=== PATIENT | female | born 1980 | race Caucasian/White ===

== ENCOUNTER → 2016-05-18 | Outpatient (CLI) | payer OTHER ==
[~2016-05-18] MED LIST: ACHYD1T PO; AMOX250S5 PO; CITA20TA12 PO; DCS100C PO; DEXAINTSOL PO; HYDR-34 PO; HYDR-3720 PO; HYDR120S7 PO; IBP600T1 PO; IBP800T PO; LOSA1TAB19 PO; PREN1TAB71 PO; TETRACAINESUCKERS MT
--- OUTSIDE RECORDS SUMMARY | 2016-05-18 08:36 | XMS REPORT | Continuity of Care Document ---
Author Author [facility] Organization [facility] Address Unknown Phone Unavailable Care Team Providers Care Department Coordinator Name Role Phone SHANNON RODRIGUEZ DO PCP Insurance Providers Payer Name Policy Number Subscriber Name Relationship [employer] [id number] Wayne Lantigua 18 Self / Same As Patient Advance Directives Directive Response Recorded Date/Time Advance Directives No 10/31/15 7:25am Health Care Power of Religious Assistant No 10/31/15 7:25am Resuscitation Status Full Code 10/31/15 7:25am Problems No problem information available. Medications Current Home Medications Medication Dose Units Route Directions Days/Qty Instructions Start Date Citalopram Hydrobromide 20 Mg 20 Mg Oral Daily 10/29/15 Losartan/Hydrochlorothiazide 1 Each 1 Each Oral Daily 10/29/15 Dexamethasone 1 Mg/1 Ml 2.5 Tsp Oral Daily 4 Days Mix 4MG/2.5CC water 10/31/15 Amoxicillin 250 Mg/5 Ml 2 Tsp Oral Twice A Day 7 Days 10/31/15 Hydrocodone Bit/[place] Me-Br 120 Ml 10-15 Ml Oral Every 4HRS as needed for Pain 1 10/31/15 Tetracaine Sucker 1 Ea Mouth/Throat As Directed as needed for Pain 3 Tetracain Suckers These suckers are custom made and require a prescription. Moisten the sucker first and then suck on it gently as far back in the mouth as possible for 2-3 days. You can repeadt it in about an hour. This will take the edge off but not completely numb the throat. 10/31/15 Past Home Medications Medication Directions Ordered Status Vit/Fe Fumarate/Fa 1 Each Tablet, 1 Each Oral Daily 05/14/12 Discontinued Ibuprofen 600 Mg Tab, 600 Mg Oral Every 6 Hours as needed 05/16/12 Discontinued Docusate Sodium 100 Mg Capsule, 100 Mg Oral Twice A Day 05/16/12 Discontinued Acetaminophen/Hydrocodone Bitart 1 Ea Tablet, 1 - 2 Tab Oral Q 4 - 6 Hr Prn 06/16/12 Discontinued Acetaminophen/Hydrocodone Bitart ([place]) 1 Each Tablet, 1-2 Tab Oral Every 3 Hours as needed for Pain 10/20/13 Discontinued Ibuprofen 800 Mg Tablet, 1 Tab Oral Give Every 6 Hr On Schedule as needed for Pain 10/20/13 Discontinued Social History Social History Problem Response Recorded Date/Time Alcohol Use Rarely Uses 10/31/2015 7:25am Recreational Drug Use No 10/31/2015 7:25am Recent Foreign Travel No 06/16/2012 4:31pm Recent Infectious Disease Exposure No 06/16/2012 4:31pm Sexually Transmitted Disease No 10/31/2015 7:25am HIV/AIDS No 10/31/2015 7:25am Smoking Status Never a Smoker 10/31/2015 7:26am Query Response Start Date Stop Date Smoking Status Never a Smoker Hospital Discharge Instructions No hospital discharge instructions. Plan of Care Discharge Date 10/31/15 11:40am Instructions/Education Provided ANESTHESIA INSTRUCTIONS POSTOP DR. ESPANA-T&A DIET DR. ESPANA-TONSILS Prescriptions See Medication Section Functional Status No functional status results. Allergies, Adverse Reactions, Alerts Allergen Type Severity Reaction Status Last Updated Morphine Allergy Unknown Active 10/31/15 Immunizations Name Given Type Date of Influenza Vaccine 02/01/12 Historical Vital Signs Acute Vital Signs Vital Response Date/Time Temperature (Fahrenheit) 97.4 degrees F (97.6 - 99.5) 10/31/2015 11:40am Temperature (Calculated Celsius) 36.33621 degrees C (36.4 - 37.5) 10/31/2015 10:40am Temperature Source Temporal 10/31/2015 11:40am Pulse Rate (adult) 62 bpm (60 - 90) 10/31/2015 11:40am Respiratory Rate 16 bpm (12 - 24) 10/31/2015 11:40am O2 Sat by Pulse Oximetry 97 % (88 - 100) 10/31/2015 11:40am Blood Pressure 111/61 mm Hg 10/31/2015 11:40am Pain Numeric Pain Scale 0-No Pain 10/31/2015 11:40am Height (Feet) 5 feet 10/31/2015 7:25am Height (Inches) 6.00 inches 10/31/2015 7:25am Height (Calculated Centimeters) 167.929172 cm 10/31/2015 7:25am Weight (Pounds) 365 pounds 10/31/2015 7:25am Weight (Ounces) 0.0 oz 10/31/2015 7:25am Weight (Calculated Grams) 123763.217 gm 10/31/2015 7:25am Weight (Calculated Kilograms) 165.895300 kilograms 10/31/2015 7:25am Calculated BMI 60.73 10/31/2015 7:25am Results Pending Laboratory Results Test Name Collection Date/Time Pending Microbiology Results Procedure Source Collection Date/Time Procedures Procedure Status Date Provider(s) Bilateral tonsillectomy and adenoidectomy Completed 10/31/15 JETT ESPANA MD Tracing only of electrocardiogram Completed 10/29/15 JETT ESPANA MD Encounters Encounter Location Arrival/Admit Date Discharge/Depart Date Attending Provider Departed [facility] 10/31/15 6:55am 11:40am JETT ESPANA MD Departed Clinic [facility] 10/29/15 5:50am 10/29/15 2: 40pm JETT ESPANA MD
[2016-05-18 08:51] LABS: BASOPHILS % (AUTO) 0 % (0-10); EOSINOPHILS # (AUTO) 0.3 10^3/uL (0.0-0.3); EOSINOPHILS % (AUTO) 3 % (0-10); LYMPHOCYTES % (AUTO) 28 % (12-44); MEAN CORPUSCULAR HEMOGLOBIN 25 PG (25-34); MEAN CORPUSCULAR HGB CONC 32 G/DL (32-36); MEAN CORPUSCULAR VOLUME 78 FL (80-99); MONOCYTES # (AUTO) 0.6 X 10^3 (0.0-1.0); MONOCYTES % (AUTO) 6 % (0-12); NEUTROPHILS # (AUTO) 6.9 X 10^3 (1.8-7.8); NEUTROPHILS % (AUTO) 64 % (42-75); PLATELET COUNT 477 10^3/uL (130-400); RED BLOOD COUNT 4.81 10^6/uL (4.35-5.85); RED CELL DISTRIBUTION WIDTH 16.8 % (10.0-14.5); WHITE BLOOD COUNT 10.8 10^3/uL (4.3-11.0)
[2016-05-18 09:09] LABS: ALANINE AMINOTRANSFERASE 17 U/L (0-55); ALBUMIN 3.8 G/DL (3.2-4.5); ANION GAP 7 MMOL/L (5-14); ASPARTATE AMINO TRANSFERASE 13 U/L (5-34); BILIRUBIN,TOTAL 0.3 MG/DL (0.1-1.0); BLOOD UREA NITROGEN 12 MG/DL (7-18); BUN/CREATININE RATIO 16; CALCIUM 9.5 MG/DL (8.5-10.1); CARBON DIOXIDE 27 MMOL/L (21-32); CHLORIDE 103 MMOL/L (98-107); CHOLESTEROL 195 MG/DL (< 200); CREATININE SERUM 0.76 MG/DL (0.60-1.30); DIRECT LDL 139 MG/DL (1-129); GFR ESTIMATED > 60; GLUCOSE 92 MG/DL (70-105); POTASSIUM 4.3 MMOL/L (3.6-5.0); SODIUM 137 MMOL/L (135-145); TOTAL PROTEIN 6.6 G/DL (6.4-8.2); TRIGLYCERIDES 123 MG/DL (<150); VLDL CHOLESTEROL 25 MG/DL (5-40)
[2016-05-18 09:30] LABS: THYROID STIMULATING HORMONE 2.36 UIU/ML (0.35-4.94)
== END ==
LOC: LAB 08:32
PROVIDERS: ATTEND Family Medicine
DX: Z00.00 Encounter for general adult medical examination without abnormal findings (principal); I10 Essential (primary) hypertension; E03.9 Hypothyroidism, unspecified; Z83.3 Family history of diabetes mellitus
CPT/HCPCS: 36415; 80053; 80061; 83036; 84439; 84443; 85025

== ENCOUNTER → 2017-06-11 | Outpatient (CLI) | payer OTHER ==
[~2017-06-11] MED LIST changes: -LOSA1TAB19 PO; +LOSA1TAB26 PO
[2017-06-11 12:18] LABS: FREE T4 (FREE THYROXINE) 0.96 NG/DL (0.70-1.48)
== END ==
LOC: LAB 11:11
PROVIDERS: ATTEND Family Medicine
DX: E03.9 Hypothyroidism, unspecified (principal)
CPT/HCPCS: 36415; 84439; 84443

== ENCOUNTER 2017-11-08 05:02 | Emergency (ER) | payer OTHER ==
[~2017-11-08] VITALS: Ht 167.6 cm; Wt 192.8 kg
[2017-11-08] MEDS ORDERED: NALT1TAB (05:10)
[2017-11-08] MEDS ORDERED: LEVO25TA2 (05:10)
[2017-11-08] MEDS ORDERED: AMLO5TAB2 (05:10)
[2017-11-08] MEDS ORDERED: VALS1TAB80 (05:10)
[2017-11-08] MEDS ORDERED: CITA20TA9 (05:10)
--- NOTE | 2017-11-08 05:37 | ED Upper Extremity ---
General Chief Complaint: Upper Extremity Stated Complaint: R SHOULDER PAIN Source: patient Exam Limitations: no limitations History of Present Illness Date Seen by Provider: Nov 08, 2017 Time Seen by Provider: 05:07 Initial Comments Here with complaint of right shoulder pain. Onset yesterday she is not sure of the cause. She did have a fall 4 days previous but does not remember any problems with her shoulder afterwards. Yesterday morning she thought maybe she slept on it wrong and has been taking ibuprofen. That hasn't helped significantly. Last dose of ibuprofen was 10 p.m. last night at 800 mg dose. This helped for a couple hours and then her pain woke her up and has persisted since. She has not had problems with her shoulders previously. Onset: yesterday Severity: moderate Pain/Injury Location: right shoulder Method of Injury: fell Modifying Factors: Improves With Immobilization; Worse With Movement; Improves With Pain Medication Allergies and Home Medications Allergies Coded Allergies: morphine (Verified Allergy, Unknown, 10/31/15) Patient Home Medication List Home Medication List Reviewed: Yes Constitutional: see HPI; No weakness Respiratory: no symptoms reported Cardiovascular: no symptoms reported Gastrointestinal: no symptoms reported Musculoskeletal: see HPI, joint pain, muscle pain; No muscle weakness Skin: no symptoms reported Psychiatric/Neurological: No Symptoms Reported All Other Systems Reviewed Negative Unless Noted: Yes Past Fdebqpd-Yrnske-Popczh Hx Past Med/Social Hx: Reviewed Nursing Past Med/Soc Hx Patient Social History Alcohol Use: Denies Use Recreational Drug Use: No Smoking Status: Never a Smoker Recent Foreign Travel: No Contact w/Someone Who Travel: No Immunizations Up To Date Date of Influenza Vaccine: Feb 01, 2012 Past Medical History Surgeries: Yes (hysterosopy D&C) Respiratory: No Cardiac: Yes Hypertension Neurological: No Reproductive Disorders: No Sexually Transmitted Disease: No HIV/AIDS: No Genitourinary: No Gastrointestinal: No Musculoskeletal: No Endocrine: Yes Hypothyroidsim Tonsilitis Cancer: No Psychosocial: Yes Depression Integumentary: No Blood Disorders: No Adverse Reaction/Blood Tranf: No Family Medical History Reviewed Nursing Family Hx No Pertinent Family Hx Physical Exam Vital Signs Vital Signs - First Documented 11/08/17 05:15 Temp 98.2 Pulse 87 Resp 14 B/P (MAP) 160/104 (122) Pulse Ox 98 O2 Delivery Room Air Capillary Refill : Height, Weight, BMI Height: 5', 6.00" Weight: 365lbs 0.0oz, 165.115416ee Method:Stated ,58.9BMI General Appearance: WD/WN, mild distress (shoulder pain on right superior lateral aspect.) Neck: full range of motion, supple Cardiovascular: regular rate, rhythm, no murmur Respiratory: lungs clear, normal breath sounds Gastrointestinal: non tender, soft Back: normal inspection, no CVA tenderness Shoulder: No deformity, No ecchymosis; limited ROM, pain, soft tissue tenderness; No swelling Elbow/Forearm: normal inspection, Right Hand: non-tender, no evidence of injury, normal ROM, Right Neurologic/Tendon: normal sensation, normal motor functions, normal tendon functions Neurologic/Psychiatric: alert, oriented x 3 Skin: normal color, warm/dry Progress/Results/Core Measures Results/Orders My Orders Orders - NAJMA GALVAN MD Shoulder, Right, 3 Views (11/08/17 05:12) Vital Signs/I&O 11/08/17 05:15 Temp 98.2 Pulse 87 Resp 14 B/P (MAP) 160/104 (122) Pulse Ox 98 O2 Delivery Room Air Progress Progress Note : Progress Note Seen and evaluated. X-ray of right shoulder ordered. Patient declined pain medicine at this point. Monitor patient. 0537: No acute findings. Discharged home with return precautions. Patient verbalize understanding instructions and agreement with plan. Toradol 60 mg IM ordered. Diagnostic Imaging Diagonstic Imaging: Xray Plain Films/CT/US/NM/MRI: other (right shoulder) Comments Right shoulder 3 view x-ray shows no acute findings. Preliminary read. Reviewed: Reviewed by Me Departure Impression Primary Impression: Right shoulder injury Qualified Codes: S49.91XA - Unspecified injury of right shoulder and upper arm , initial encounter Disposition: HOME, SELF-CARE Condition: Stable Departure-Patient Inst. Decision time for Depature: 05:50 Referrals: SHANNON RODRIGUEZ DO (PCP/Family) Primary Care Physician Patient Instructions: Shoulder Impingement (DC) Add. Discharge Instructions: All discharge instructions reviewed with patient and/or family. Voiced understanding. You may take ibuprofen 800 mg every 8 hours as needed for pain. You may take Tylenol 1000 mg every 8 hours as needed for pain. Use sling for comfort over the next several days and then as needed. Follow-up with your doctor this week for recheck and further evaluation. You may need orthopedic referral. You can get this through your doctor. You may use [id number]-[id number] preparation such as icy hot with lidocaine or similar. Work/School Note: Work Release Form Date Seen in the Emergency Department: Nov 08, 2017 Return to Work: Nov 09, 2017 Copy Copies To 1: SHANNON RODRIGUEZ TIMOTHY D MD Nov 08, 2017 05:37
[2017-11-08] MEDS ORDERED: KETOROLAC 60 MG/2 ML VIAL IM STA (05:45)
[2017-11-08 06:03] VITALS: BP 160/104
--- NOTE | 2017-11-08 06:12 | Diagnostic Imaging Report ---
CLINICAL INDICATION: Patient complains right shoulder pain x1 day. No known new injury. EXAM: X-ray of the right shoulder, 3 views. COMPARISON: None. FINDINGS: There is no evidence of acute fracture or dislocation. There is no significant bone or joint abnormality. The right acromioclavicular joint region is unremarkable. Glenohumeral joints is unremarkable. IMPRESSION: Unremarkable x-ray of the right shoulder. Dictated by: Dictated on workstation # [id number]
== END 2017-11-08 06:03 | disposition home or self-care (01) ==
LOC: EDUNIT# 05:02 → ER 05:04
DX: S49.91XA Unspecified injury of right shoulder and upper arm, initial encounter (principal); I10 Essential (primary) hypertension; E03.9 Hypothyroidism, unspecified; F32.9 Major depressive disorder, single episode, unspecified; Z88.5 Allergy status to narcotic agent; W18.30XA Fall on same level, unspecified, initial encounter
CPT/HCPCS: 73030; 96372

== ENCOUNTER → 2019-03-09 | Outpatient (CLI) | payer OTHER ==
[~2019-03-09] MED LIST changes: +AMLO5TAB9; +CITA20TA9; +LEVO25TA2; +NALT1TAB; +VALS1TAB80
--- NOTE | 2019-03-10 17:46 | Diagnostic Imaging Report ---
EXAMINATION: Digital mammogram bilateral screening. INDICATION: Screening. COMPARISON: This study was compared to the prior exam of 10/02/2009. At this time, there are no current complaints. The current study was also evaluated with a Computer Aided Detection (CAD) system. 3-D tomosynthesis was also performed and reviewed. FINDINGS: The breasts are predominantly fatty. On the craniocaudad view of the right breast in the retroareolar region, roughly 3 cm from the nipple, there is a small 3 mm nodular density. This finding cannot be identified on the MLO view with certainty, but it does seem to persist on the tomographic CC views. I would recommend that a compression view of this area be obtained in the CC projection as well as a true lateral view for further study. Ultrasound of the right breast should also be performed. The left breast is unchanged. IMPRESSION: Additional mammographic views and ultrasound of the right breast would be recommended for further study. ACR BI-RADS Category 0: Incomplete. (Needs additional imaging evaluation). Result letter will be mailed to the patient. Note: At least 10% of breast cancer is not imaged by mammography. Dictated by: Dictated on workstation # [id number]
== END ==
LOC: RAD 10:33
PROVIDERS: ATTEND Obstetrics & Gynecology
DX: Z12.31 Encounter for screening mammogram for malignant neoplasm of breast (principal)
CPT/HCPCS: 77067

== ENCOUNTER → 2019-03-23 | Outpatient (CLI) | payer OTHER ==
--- NOTE | 2019-03-23 10:03 | Diagnostic Imaging Report ---
INDICATION: Right breast density. Patient presents for additional views. CORRELATION is made with recent screening study from 03/09/2019. Unilateral right 2-D and 3-D diagnostic mammography was performed with CAD. This includes spot compression CC, rolled CC and conventional 90 degree lateral views. There is a persistent small nodule retroareolar right breast which appears to be upper and inner aspect. This has fairly benign features. No other masses are seen. No suspicious calcifications are seen. IMPRESSION: BI-RADS 0 Tiny nodule in the retroareolar right breast slightly medial to the nipple line and perhaps slightly upper. Further evaluation with ultrasound is recommended and will be performed today. Dictated by: Dictated on workstation # [id number]
--- NOTE | 2019-03-23 11:17 | Diagnostic Imaging Report ---
INDICATION: Right breast density. The study is performed for further evaluation. Correlation is made with diagnostic mammogram earlier the same day and screening mammogram from 03/09/2019. Sonographic interrogation of the upper and inner aspect of the right breast was performed. There is a small hypoechoic nodule at 1:00 location 3 cm from the nipple measuring approximately 7 mm x 5 mm x 3 mm. Characterization is difficult due to very small size. It is uncertain if this represents a tiny cyst versus a tiny solid nodule. No internal vascularity is seen. IMPRESSION: BI-RADS 3 Circumscribed hypoechoic nodule 1:00 location of the right breast, 3 cm from the nipple. This likely accounts for the mammographic density. This likely represents a benign nodule. Even so, follow-up right mammogram and right breast ultrasound in 6 months is recommended to confirm stability. ACR BI-RADS Category 3: Probably benign findings. Dictated by: Dictated on workstation # [id number]
== END ==
LOC: RAD 08:16
PROVIDERS: ATTEND Obstetrics & Gynecology
DX: N63.12 Unspecified lump in the right breast, upper inner quadrant (principal)

== ENCOUNTER → 2019-08-14 | Outpatient (CLI) | payer OTHER ==
[2019-08-14 09:59] LABS: ALBUMIN 3.5 GM/DL (3.2-4.5); CHLORIDE 107 MMOL/L (98-107); POTASSIUM 4.1 MMOL/L (3.6-5.0); SODIUM 139 MMOL/L (135-145)
[2019-08-14 10:00] LABS: CALCIUM 8.5 MG/DL (8.5-10.1)
[2019-08-14 10:01] LABS: GLUCOSE 90 MG/DL (70-105); TOTAL PROTEIN 6.6 GM/DL (6.4-8.2)
[2019-08-14 10:03] LABS: BILIRUBIN,TOTAL 0.3 MG/DL (0.1-1.0); CARBON DIOXIDE 21 MMOL/L (21-32)
[2019-08-14 10:05] LABS: ALKALINE PHOSPHATASE 54 U/L (40-136); CREATININE SERUM 0.86 MG/DL (0.60-1.30); GFR ESTIMATED > 60
[2019-08-14 10:06] LABS: BUN/CREATININE RATIO 14
[2019-08-14 10:08] LABS: ALANINE AMINOTRANSFERASE 12 U/L (0-55)
[2019-08-14 17:57] LABS: FREE T4 (FREE THYROXINE) 0.88 NG/DL (0.70-1.48)
== END ==
LOC: LAB 09:33
PROVIDERS: ATTEND Family Medicine
DX: Z00.00 Encounter for general adult medical examination without abnormal findings (principal); Z13.6 Encounter for screening for cardiovascular disorders; I10 Essential (primary) hypertension; E03.9 Hypothyroidism, unspecified
CPT/HCPCS: 36415; 80053; 80061; 84439; 84443

== ENCOUNTER → 2019-09-07 | Outpatient (CLI) | payer OTHER ==
--- NOTE | 2019-09-07 18:19 | Diagnostic Imaging Report ---
EXAMINATION: Ultrasound of the right breast. INDICATION: Follow-up nodule. FINDINGS: The prior right breast ultrasound exam of 03/23/2019 noted a small 7 x 5 x 3 mm hypoechoic nodule in the 1 o'clock position roughly 3 cm from the nipple. On this exam that finding cannot be identified. The diagnostic mammogram performed prior to this study also suggested that the area of concern had diminished in size. I do suspect that the finding seen on the mammogram is a benign process. Even so, a six-month follow-up mammogram would be recommended for continued evaluation. IMPRESSION: 1. The small hypoechoic lesion seen previously cannot be identified. There is no sign of malignancy. 2. As there is still a small persistent density on the mammogram, a six-month follow-up mammogram study would be recommended for continued evaluation. ACR BI-RADS Category 3: Probably benign findings. Dictated by: Dictated on workstation # [id number]
--- NOTE | 2019-09-07 18:29 | Diagnostic Imaging Report ---
EXAMINATION: Unilateral diagnostic right mammogram. The current study was also evaluated with a Computer Aided Detection (CAD) system. INDICATION: Follow-up exam. FINDINGS: The screening mammogram performed on 03/09/2019 noted a small 3 mm nodular density in the retroareolar region of the right breast. The ultrasound examination of this area performed on 03/23/2019 suggested a small benign-appearing nodule in the retroareolar region. This was felt to represent a benign process. On this exam, the mammographic density seen previously is slightly smaller. This finding is still difficult to visualize on the MLO view. The overall appearance of the right breast is otherwise no different. There are scattered fibroglandular densities which could obscure a lesion. There is no primary or secondary sign of malignancy noted, however. IMPRESSION: 1. The small density in the retroareolar region of the right breast seen previously is somewhat less conspicuous on this exam. This finding is most likely a benign process. Ultrasound is pending for further study. 2. There is no evidence for malignancy otherwise. ACR BI-RADS Category 0: Incomplete. (Needs additional imaging evaluation). Result letter will be mailed to the patient. Note: At least 10% of breast cancer is not imaged by mammography. Dictated by: Dictated on workstation # [id number]
== END ==
LOC: RAD 14:16
PROVIDERS: ATTEND Obstetrics & Gynecology
DX: N63.12 Unspecified lump in the right breast, upper inner quadrant (principal)

== ENCOUNTER → 2020-03-26 | Outpatient (CLI) | payer OTHER ==
[~2020-03-26] MED LIST changes: +AMLO-250; -AMLO5TAB9
[2020-03-26 14:04] LABS: FREE T4 (FREE THYROXINE) 0.92 NG/DL (0.70-1.48)
--- NOTE | 2020-03-26 15:14 | Diagnostic Imaging Report ---
PROCEDURE: US Thyroid. TECHNIQUE: Multiple Real-time grayscale images were obtained of the thyroid in various projections. INDICATION: Globus goiter, thyroid disease. FINDINGS: The right thyroid lobe is 4.1 x 1.0 x 1.1 cm and appears normal and nonfocal. The left thyroid lobe measures 4.1 x 0.9 x 1.3 cm and is normal in size. It contains a well-defined hyperechoic nodule in its lower pole measuring 9 mm. This measured 1.2 cm on the comparison study in 2016. This is a benign Bosniak 3 lesion and, given its size and reduction from a remote comparison, no further workup is needed. IMPRESSION: A subcentimeter benign hyperechoic left lobe thyroid nodule is smaller than on a remote comparison as a benign finding. No suspicious lesion. Dictated by: Dictated on workstation # [id number]
== END ==
LOC: RAD 13:03
PROVIDERS: ATTEND Otolaryngology Otolaryngology/Facial Plastic Surgery
DX: E04.1 Nontoxic single thyroid nodule (principal)
CPT/HCPCS: 36415; 76536; 84439; 84443

== ENCOUNTER → 2020-08-02 | Outpatient (CLI) | payer OTHER ==
[2020-08-02 12:54] LABS: FREE T4 (FREE THYROXINE) 0.93 NG/DL (0.70-1.48)
== END ==
LOC: SDC 11:42
PROVIDERS: ATTEND Family Medicine
DX: E03.9 Hypothyroidism, unspecified (principal)
CPT/HCPCS: 36415; 84439; 84443

== ENCOUNTER 2020-10-03 19:02 | Emergency (ER) | payer OTHER ==
[~2020-10-03] VITALS: Ht 167.7 cm; Wt 170.0 kg
--- NOTE | 2020-10-03 19:32 | ED Upper Extremity ---
General Chief Complaint: Laceration Stated Complaint: R HAND LAC Nursing Triage Note: Pt ambulates to ED 7, lac to right hand Nursing Sepsis Screen: No Definite Risk Source: patient Exam Limitations: no limitations History of Present Illness Date Seen by Provider: Oct 03, 2020 Time Seen by Provider: 19:29 Initial Comments To ER with laceration to the thenar eminence of the right hand from a knife just prior to arrival. Onset: just prior to arrival Severity: moderate (I have) Pain/Injury Location: right hand Allergies and Home Medications Allergies Coded Allergies: morphine (Verified Allergy, Unknown, 10/31/15) Patient Home Medication List Home Medication List Reviewed: Yes Review of Systems Constitutional: see HPI EENTM: see HPI Respiratory: no symptoms reported Cardiovascular: no symptoms reported Musculoskeletal: no symptoms reported Skin: no symptoms reported Psychiatric/Neurological: No Symptoms Reported Past Dptoljl-Xvsevu-Iqwedi Hx Patient Social History Alcohol Use: Occasionally Uses Smoking Status: Never a Smoker Recent Infectious Disease Expo: No Recent Hopitalizations: No Immunizations Up To Date Tetanus Booster (TDap): Less than 5yrs Date of Influenza Vaccine: Feb 01, 2012 Seasonal Allergies Seasonal Allergies: No Past Medical History Surgeries: Yes (hysterosopy D&C) Respiratory: No Cardiac: Yes Hypertension Neurological: No : No Reproductive Disorders: No Sexually Transmitted Disease: No HIV/AIDS: No Genitourinary: No Gastrointestinal: No Musculoskeletal: No Endocrine: Yes Hypothyroidsim HEENT: Yes Tonsilitis Cancer: No Psychosocial: Yes Depression Integumentary: No Blood Disorders: No Adverse Reaction/Blood Tranf: No Family Medical History No Pertinent Family Hx Physical Exam Vital Signs Vital Signs - First Documented 10/03/20 19:13 Temp 36.6 Pulse 85 Resp 18 B/P (MAP) 167/87 (113) Pulse Ox 96 O2 Delivery Room Air Capillary Refill : Less Than 3 Seconds Height, Weight, BMI Height: 5'6.00" Weight: 425lbs. 0.0oz. 192.085823gc; 60.00 BMI Method:Stated General Appearance: WD/WN, no apparent distress HEENT: PERRL/EOMI, normal ENT inspection, TMs normal Neck: non-tender, full range of motion Respiratory: no respiratory distress, no accessory muscle use Shoulder: normal inspection, non-tender Elbow/Forearm: normal inspection, non-tender Wrist: Yes normal inspection, Yes non-tender Hand: Right, laceration (1.5cm to thenar eminence depth to subq tissue. Scrubbed with chlorhexidine/saline solution. closed with 5 simple interrupted sutures size 5-0 prolene normal motor and sensory function) Neurologic/Tendon: normal sensation, normal motor functions Neurologic/Psychiatric: alert, normal mood/affect, oriented x 3 Skin: normal color, warm/dry Progress/Results/Core Measures Results/Orders Vital Signs/I&O 10/03/20 19:13 Temp 36.6 Pulse 85 Resp 18 B/P (MAP) 167/87 (113) Pulse Ox 96 O2 Delivery Room Air Blood Pressure Mean: 113 Departure Impression Primary Impression: Hand laceration Disposition: 01 HOME, SELF-CARE Condition: Stable Departure-Patient Inst. Decision time for Depature: 19:30 Referrals: SHANNON RODRIGUEZ DO (PCP/Family) Primary Care Physician Patient Instructions: Laceration Repair With Stitches ED Add. Discharge Instructions: stitches out in 7 days All discharge instructions reviewed with patient and/or family. Voiced under standing. YAMILET [employer] COORDINATOR Oct 03, 2020 19:32
[2020-10-03 19:39] VITALS: BP 167/87
[2020-10-03] MEDS ORDERED: TETANUS,DIPTH,PERTUSS P/F (BOOSTRIX) 0.5 ML VIAL IM ONE (19:45)
== END 2020-10-03 19:39 | disposition home or self-care (01) ==
LOC: EDUNIT# 19:02 → ER 19:04
DX: S61.411A Laceration without foreign body of right hand, initial encounter (principal); I10 Essential (primary) hypertension; Z23 Encounter for immunization; Z88.5 Allergy status to narcotic agent; W26.0XXA Contact with knife, initial encounter
CPT/HCPCS: 12001; 90715

== ENCOUNTER → 2021-01-08 | Outpatient (CLI) | payer OTHER ==
[2021-01-08 08:47] LABS: BASOPHILS # (AUTO) 0.1 10^3/uL (0.0-0.1); BASOPHILS % (AUTO) 1 % (0-10); EOSINOPHILS # (AUTO) 0.4 10^3/uL (0.0-0.3); EOSINOPHILS % (AUTO) 4 % (0-10); HEMATOCRIT 38 % (35-52); HEMOGLOBIN 11.6 g/dL (11.5-16.0); LYMPHOCYTES # (AUTO) 2.3 10^3/uL (1.0-4.0); LYMPHOCYTES % (AUTO) 23 % (12-44); MEAN CORPUSCULAR HEMOGLOBIN 26 pg (25-34); MEAN CORPUSCULAR HGB CONC 31 g/dL (32-36); MEAN CORPUSCULAR VOLUME 85 fL (80-99); MEAN PLATELET VOLUME 9.2 fL (9.0-12.2); MONOCYTES # (AUTO) 0.5 10^3/uL (0.0-1.0); MONOCYTES % (AUTO) 6 % (0-12); NEUTROPHILS # (AUTO) 6.6 10^3/uL (1.8-7.8); NEUTROPHILS % (AUTO) 66 % (42-75); PLATELET COUNT 449 10^3/uL (130-400); WHITE BLOOD COUNT 9.9 10^3/uL (4.3-11.0)
[2021-01-08 09:06] LABS: ALBUMIN 3.9 GM/DL (3.2-4.5); POTASSIUM 3.9 MMOL/L (3.6-5.0)
[2021-01-08 09:07] LABS: CALCIUM 9.5 MG/DL (8.5-10.1)
[2021-01-08 09:09] LABS: TOTAL PROTEIN 6.9 GM/DL (6.4-8.2)
[2021-01-08 09:11] LABS: BILIRUBIN,TOTAL 0.3 MG/DL (0.1-1.0)
[2021-01-08 09:12] LABS: CREATININE SERUM 0.92 MG/DL (0.60-1.30)
[2021-01-08 09:37] LABS: FREE T4 (FREE THYROXINE) 0.98 NG/DL (0.70-1.48)
== END ==
LOC: SDC 08:26
PROVIDERS: ATTEND Family Medicine
DX: Z00.00 Encounter for general adult medical examination without abnormal findings (principal); Z13.6 Encounter for screening for cardiovascular disorders; I10 Essential (primary) hypertension; E03.9 Hypothyroidism, unspecified
CPT/HCPCS: 36415; 80053; 80061; 84439; 84443; 85025

== ENCOUNTER → 2021-02-26 | Outpatient (CLI) | payer OTHER ==
[2021-02-26 09:15] LABS: BASOPHILS # (AUTO) 0.1 10^3/uL (0.0-0.1); BASOPHILS % (AUTO) 1 % (0-10); EOSINOPHILS # (AUTO) 0.6 10^3/uL (0.0-0.3); EOSINOPHILS % (AUTO) 5 % (0-10); HEMATOCRIT 37 % (35-52); HEMOGLOBIN 11.6 g/dL (11.5-16.0); LYMPHOCYTES # (AUTO) 2.1 10^3/uL (1.0-4.0); LYMPHOCYTES % (AUTO) 19 % (12-44); MEAN CORPUSCULAR HEMOGLOBIN 27 pg (25-34); MEAN CORPUSCULAR HGB CONC 32 g/dL (32-36); MEAN CORPUSCULAR VOLUME 84 fL (80-99); MONOCYTES # (AUTO) 0.7 10^3/uL (0.0-1.0); MONOCYTES % (AUTO) 6 % (0-12); NEUTROPHILS # (AUTO) 7.9 10^3/uL (1.8-7.8); NEUTROPHILS % (AUTO) 70 % (42-75); PLATELET COUNT 447 10^3/uL (130-400); WHITE BLOOD COUNT 11.3 10^3/uL (4.3-11.0)
[2021-02-26 09:37] LABS: BAND NEUTROPHILS 1 %; EOSINOPHILS % (MANUAL) 3 %; LYMPHOCYTES % (MANUAL) 26 %; MONOCYTES % (MANUAL) 5 %; NEUTROPHILS % (MANUAL) 64 %
[2021-02-26 09:38] LABS: PLATELET CLUMPS RARE; RBC MORPH NORMAL; REACTIVE LYMPHOCYTES 1 %
== END ==
LOC: SDC 07:39
PROVIDERS: ATTEND Family Medicine
DX: D75.839 Thrombocytosis, unspecified (principal); D50.9 Iron deficiency anemia, unspecified
CPT/HCPCS: 36415; 82728; 83540; 85007; 85027

== ENCOUNTER → 2022-03-12 | Outpatient (CLI) | payer OTHER ==
[2022-03-12 09:06] LABS: BASOPHILS % (AUTO) 1 % (0-10); EOSINOPHILS # (AUTO) 0.3 10^3/uL (0.0-0.3); EOSINOPHILS % (AUTO) 4 % (0-10); HEMATOCRIT 38 % (35-52); HEMOGLOBIN 12.1 g/dL (11.5-16.0); LYMPHOCYTES # (AUTO) 1.9 10^3/uL (1.0-4.0); LYMPHOCYTES % (AUTO) 22 % (12-44); MEAN CORPUSCULAR HEMOGLOBIN 27 pg (25-34); MEAN CORPUSCULAR HGB CONC 32 g/dL (32-36); MEAN CORPUSCULAR VOLUME 85 fL (80-99); MEAN PLATELET VOLUME 9.1 fL (9.0-12.2); MONOCYTES # (AUTO) 0.5 10^3/uL (0.0-1.0); MONOCYTES % (AUTO) 5 % (0-12); NEUTROPHILS # (AUTO) 5.8 10^3/uL (1.8-7.8); NEUTROPHILS % (AUTO) 69 % (42-75); PLATELET COUNT 382 10^3/uL (130-400); WHITE BLOOD COUNT 8.5 10^3/uL (4.3-11.0)
[2022-03-12 09:31] LABS: ALBUMIN 3.7 GM/DL (3.2-4.5); BILIRUBIN,TOTAL 0.3 MG/DL (0.1-1.0); CREATININE SERUM 0.83 MG/DL (0.60-1.30); POTASSIUM 4.2 MMOL/L (3.6-5.0); TOTAL PROTEIN 6.5 GM/DL (6.4-8.2)
[2022-03-12 09:51] LABS: FREE T4 (FREE THYROXINE) 0.87 NG/DL (0.70-1.48)
== END ==
LOC: LAB 08:22
PROVIDERS: ATTEND Family Medicine
DX: E66.9 Obesity, unspecified (principal); E04.1 Nontoxic single thyroid nodule; R73.09 Other abnormal glucose
CPT/HCPCS: 36415; 80053; 80061; 83036; 84439; 84443; 85025

== ENCOUNTER → 2022-11-26 | Outpatient (CLI) | payer OTHER ==
--- NOTE | 2022-11-27 10:49 | Diagnostic Imaging Report ---
INDICATION: Bilateral digital 2-D and 3-D screening with CAD. The current study was also evaluated with a Computer Aided Detection (CAD) system. COMPARISON: 09/2019 FINDINGS: density 2. No suspicious mass, architectural distortion, suspect calcifications or changes to suggest malignancy. IMPRESSION: BI-RADS Category 1 ACR BI-RADS Category 1: Negative. Result letter will be mailed to the patient. Note: At least 10% of breast cancer is not imaged by mammography. Dictated by: Dictated on workstation # [id number]
== END ==
LOC: RAD 07:35
PROVIDERS: ATTEND Nurse Practitioner
DX: Z12.31 Encounter for screening mammogram for malignant neoplasm of breast (principal)
CPT/HCPCS: 77063; 77067

== ENCOUNTER → 2022-12-23 | Outpatient (CLI) | payer OTHER ==
[~2022-12-23] MED LIST changes: +BARIUM for suspension 96% w/w (Vanilla Silq Medium Density) PO ONE; +BARIUM for suspension 98% w/w (Vanilla Silq High Density) PO ONE
--- NOTE | 2022-12-23 10:34 | Diagnostic Imaging Report ---
INDICATION: Preop prior to gastric sleeve surgery. TECHNIQUE: The patient ingested effervescent crystals as well as thin and thick barium and imaging over the esophagus, stomach, and proximal small bowel was performed. A total of 43 seconds of fluoroscopic time was utilized. Reference air Kerma is 118.3 mGy. 29 images were obtained. FINDINGS: The preliminary radiograph of the abdomen is unremarkable. The esophagus has a smooth contour. No mass or stricture is identified. No gastroesophageal reflux or hiatal hernia is demonstrated. The stomach has a normal configuration. There is prompt emptying into the small bowel. The duodenal bulb is without deformity. IMPRESSION: Unremarkable upper GI study. Dictated by: Dictated on workstation # [id number]
== END ==
LOC: RAD 09:17
PROVIDERS: ATTEND Surgery
DX: K21.9 Gastro-esophageal reflux disease without esophagitis (principal)
CPT/HCPCS: 74246

== ENCOUNTER → 2023-03-04 | Outpatient (CLI) | payer OTHER ==
[~2023-03-04] VITALS: Ht 167.7 cm; Wt 150.2 kg
[~2023-03-04] MED LIST changes: +ASPI-999 PO; -BARIUM for suspension 96% w/w (Vanilla Silq Medium Density) PO ONE; -BARIUM for suspension 98% w/w (Vanilla Silq High Density) PO ONE; +BIOT10005 PO; +IRON18TA PO; +MAGN100T5 PO; +MULT-974 PO; +NAPR-1070 PO; +PANT40GR PO; +POTA99CA PO
== END | disposition home or self-care (01) ==
LOC: PREOP 13:30
PROVIDERS: ATTEND Surgery
DX: Z01.818 Encounter for other preprocedural examination (principal)

== ENCOUNTER 2023-03-11 07:58 | Day surgery (SDC) | payer OTHER ==
--- NOTE | 2023-03-05 14:17 | HISTORY AND PHYSICAL ---
This is for date of service 03/11/2023. The patient is a 42-year-old female with morbid obesity and medical comorbidities related to obesity. She is interested in the laparoscopic gastric sleeve resection and meets the medical criteria for bariatric surgery. She reports that she has gained the majority of her adult weight over the past 10-15 years. She reports she has tried diets in the past such as keto as well as low carbohydrates and reports little success. She reports that she has tried exercises such as walking and again reports little success. She reports that she has tried medications for weight loss including Saxenda and reports that she has had some success with this medication. Her medical comorbidities related to obesity include hypertension, depression, and gastroesophageal reflux disease. MEDICAL HISTORY: Hypertension, depression, hypothyroidism, gastroesophageal reflux disease. SURGICAL HISTORY: section in 2012, laparoscopic cholecystectomy 2012. ALLERGIES: No known drug allergies. MEDICATIONS: Saxenda 18 mg/3 mL as directed, multivitamin, magnesium, potassium, iron, biotin, aspirin 81 mg daily, Celexa 40 mg half tablet by mouth daily, amlodipine 10 mg daily, Synthroid 25 mcg daily, Protonix 40 mg daily, valsartan/hydrochlorothiazide 320/25 mg daily. SOCIAL HISTORY: Negative for tobacco smoke or alcohol. FAMILY HISTORY: Father, myocardial infarction. Mother, hypertension. Paternal grandfather, myocardial infarction. Paternal grandfather, myocardial infarction. VITAL SIGNS: Blood pressure is 126/82. Current weight is 342.2 at 5 feet 6 inches with a body mass index of 55.2. REVIEW OF SYSTEMS: This is a well-nourished female in no acute distress. She is not experiencing any shortness of breath or difficulty breathing. No chest pain, palpitations or diaphoresis. No nausea, vomiting or abdominal pain. No diarrhea or constipation. No red blood per rectum. No dark tarry stools. No fever or chills. No recent inadvertent weight loss. All other review of systems negative. PHYSICAL EXAM: CHEST: Clear. Good breath sounds bilaterally. HEART: Regular, no murmurs. EXTREMITIES: No lower extremity edema. Negative Homans sign. HEENT: No scleral icterus. No cervical lymphadenopathy. ABDOMEN: Soft, nontender, nondistended. SKIN: Warm, dry and pink. NEUROLOGIC: Awake, alert and oriented x3. ASSESSMENT AND PLAN: A 42-year-old female with morbid obesity and medical comorbidities related to obesity including hypertension, depression, and gastroesophageal reflux disease. She is interested in the laparoscopic gastric sleeve resection and meets the medical criteria for bariatric surgery. At this time, she has completed all the necessary tests and evaluations including overnight oximetry study, upper GI contrast study, nutrition and psychology consult and has received clearance from her primary care physician. The risks and benefits of the procedure as well as the procedure and home care instructions were explained to the patient. She verbalized understanding of instructions and agrees to proceed as planned. At this time, we will proceed with scheduling her for the laparoscopic gastric sleeve resection. Job ID: [id number] DocumentID: [id number] Dictated Date: 03/05/2023 09:29:26 Nondestructive Tester Date: 03/05/2023 14:15:00 Dictated By: MAGGIE BARRERA APRN
[~2023-03-11] VITALS: Ht 167.7 cm; Wt 146.0 kg
[2023-03-11] VITALS (10 sets, daily range): BP systolic 110–156; BP diastolic 64–82
[2023-03-11] MEDS ORDERED: ceFAZolin INJECTION 2,000 MG in NS (IVPB) 50 ML 50 ML IV ONE (08:00)
[2023-03-11] MEDS ORDERED: LIDOCAINE PF 2% 5 ML VIAL ONE (08:18)
[2023-03-11] MEDS ORDERED: ROCURONIUM 50 MG/5 ML VIAL IV ONE (08:18)
[2023-03-11] MEDS ORDERED: dexAMETHasone INJ 10 MG/ML 1 ML VIAL ONE (08:18)
[2023-03-11] MEDS ORDERED: ONDANSETRON INJECTION 4 MG/2 ML (SDV) ONE ×3 (08:18→11:57)
[2023-03-11] MEDS ORDERED: proPOfol INJECTION 200 MG/20 ML VIAL IV ONE (08:18)
[2023-03-11] MEDS ORDERED: MIDAZOLAM INJ 2 MG/2 ML VIAL ONE (08:18)
[2023-03-11] MEDS ORDERED: fentaNYL INJECTION 100 MCG/2 ML VIAL ONE ×2 (08:18→13:24)
[2023-03-11] MEDS ORDERED: LIDOCAINE 2% w/EPI 1:100,000 20 ML VIAL ONE (08:36)
[2023-03-11] MEDS: LACTATED RINGERS 1,000 ML 1,000 ML IV PRN ×2 (08:41→10:38)
[2023-03-11] MEDS ORDERED: LIDOCAINE 2% w/EPI 1:100,000 20 ML VIAL INJ ONE (08:42)
--- NOTE | 2023-03-11 09:05 | Progress Note-Pre Operative ---
Pre-Operative Progress Note Date H&P Reviewed: Mar 11, 2023 Time H&P Reviewed: 09:00 History & Physical: H&P Reviewed, Patient Examed, No changes noted Pre-Operative Diagnosis: Morbid obesity, HTN, GERD, Depression MAGGIE BARRERA APRN Mar 11, 2023 09:05
--- NOTE | 2023-03-11 09:06 | Discharge Inst-Surgical ---
D/C Lap Instructions-KIDO Reconcile Patient Problems Problems Reviewed?: Yes New, Converted, or Re-Newed RX: Other Follow Up Appt in 2 weeks Activity as tolerated No driving for 24 hours No driving while on pain medications Incentive Spirometry use every 2 hours while awake Clear liquid diet Symptoms to Report: Fever over 101 degree F, Nausea/Vomiting Infection Signs and Symptoms to report: Increased redness, Foul odor of wound, Increased drainage Bathing instructions: May shower Operative Area Clean/Dry; Keep incision clean/dry If any problems/questions: Contact your physician or go to Emergency Room MAGGIE BARRERA APRN Mar 11, 2023 09:06
[2023-03-11] MEDS ORDERED: NALOXONE 0.4 MG/ML 1 ML VIAL IV PRN (09:45)
[2023-03-11] MEDS ORDERED: ONDANSETRON INJECTION 4 MG/2 ML (SDV) IV PRN (09:45)
[2023-03-11] MEDS ORDERED: METOCLOPRAMIDE INJ 10 MG/2 ML IV PRN (09:45)
[2023-03-11] MEDS ORDERED: NS IV 1000 ML 1,000 ML IV SCH (09:45)
[2023-03-11] MEDS ORDERED: ONDANSETRON INJECTION 4 MG/2 ML (SDV) IVP PRN ×2 (09:45→11:30)
[2023-03-11] MEDS ORDERED: diphenhydrAMINE INJ 50 MG/ML VIAL IV PRN (09:45)
[2023-03-11] MEDS ORDERED: diphenhydrAMINE INJ 50 MG/ML VIAL IVP PRN (09:45)
[2023-03-11] MEDS ORDERED: GLYCOPYRROLATE INJ 0.2 MG/ML 2 ML VIAL ONE (11:04)
[2023-03-11] MEDS ORDERED: NEOSTIGMINE 1 MG/1ML 10 ML VIAL ONE (11:04)
[2023-03-11] MEDS ORDERED: SEVOFLURANE (ULTANE) 15 ML INHAL SOLN ONE (11:13)
--- NOTE | 2023-03-11 11:17 | Progress Note-Post Operative ---
Post-Operative Progess Note Surgeon (s)/Slp Teacher (s) Surgeon CAROLINE BEGUM MD Slp Teacher: corine leal TECHNICAL OPERATIONS VICE PRESIDENT Pre-Operative Diagnosis Morbid obesity, HTN, GERD, Depression Post-Operative Diagnosis same Procedure & Operative Findings Date of Procedure 03/11/23 Procedure Performed/Findings laparoscopic gastric sleeve resection. Anesthesia Type get Estimated Blood Loss Estimated blood loss (mL): minimal Specimens/Packing Specimens Removed stomach CAROLINE BEGUM MD Mar 11, 2023 11:17
[2023-03-11] MEDS ORDERED: fentaNYL INJECTION 100 MCG/2 ML VIAL IVP ONE (11:30)
[2023-03-11] MEDS ORDERED: HYDROmorphone INJECTION 2 MG/ML VIAL IV ONE (11:30)
[2023-03-11] MEDS ORDERED: PROMETHAZINE INJ 25 MG/ML VIAL IVP ONE (11:30)
[2023-03-11] MEDS ORDERED: MEPERIDINE INJ 50 MG/ML VIAL IVP ONE (11:30)
[2023-03-11] MEDS: ONDANSETRON INJECTION 4 MG/2 ML (SDV) IVP SCH ×3 (12:03→23:10)
[2023-03-11] MEDS: METOCLOPRAMIDE INJ 10 MG/2 ML IVP SCH ×3 (13:38→23:10)
[2023-03-11] MEDS: fentaNYL INJECTION 100 MCG/2 ML VIAL IVP PRN ×5 (13:38→19:58)
[2023-03-11] MEDS: 1/2 NS + KCL 20 MEQ/L 1,000 ML 1,000 ML IV SCH ×3 (13:43→23:10)
[2023-03-11] MEDS: metroNIDAZOLE 500MG/100ML IVPB 100 ML IV SCH ×2 (13:43→22:08)
[2023-03-11] MEDS: RT-ALBUTEROL SULF 2.5 MG/3 ML PRE-MIX VIAL INH SCH ×2 (15:00→20:39)
[2023-03-11] MEDS: ceFAZolin INJECTION 2,000 MG in NS (IVPB) 50 ML 50 ML IV SCH (17:19)
--- NOTE | 2023-03-11 19:51 | OPERATIVE REPORT ---
DATE OF SERVICE: 03/11/2023 ATTENDING PRIMARY CARE PHYSICIAN: Kathleen Botello MD PREOPERATIVE DIAGNOSES: Morbid obesity, hypertension, gastroesophageal reflux disease. POSTOPERATIVE DIAGNOSES: Morbid obesity, hypertension, gastroesophageal reflux disease. PROCEDURE: Laparoscopic gastric sleeve resection. SURGEON: Caroline Begum MD AUTOMOTIVE COLLISION ESTIMATOR: Christo Cristobal APRN ANESTHESIA: General endotracheal. ESTIMATED BLOOD LOSS: Minimal. FINDINGS: Surgically absent gallbladder. No hiatal hernia. DISPOSITION: The patient tolerated the procedure well. INDICATIONS: The patient is a 42-year-old female with morbid obesity, medical comorbidities related to obesity and does meet the medical criteria for bariatric surgery. She is in our surgical weight loss program for the gastric sleeve resection. She states that she gained the majority of her weight in the past 15 years. She has tried a number of diet and exercise attempts with no success. She has tried diet programs including low carbohydrate, ketogenic as well as low calorie diets with little success. She has also tried exercise regimens principally walking again with little success. She has also tried medications including Saxenda and reports that she did have some success with the medication, however, could not continue the medication due to her insurance. Her medical comorbidities related to her obesity include hypertension, gastroesophageal reflux disease as well as depression. DESCRIPTION OF PROCEDURE: The patient was brought to the operating room, laid supine on the table. After adequate IV pain and sedative medications and general endotracheal intubation, the abdomen was prepped and draped in standard surgical fashion. 0.5% Marcaine with epinephrine was then used to anesthetize the overlying skin in the left upper abdominal quadrant and a transverse skin incision made using a #15 blade. An 0 silk suture was applied to the medial aspect of the incision for retraction and a Veress needle inserted with a low opening pressure of 0 mmHg and the abdomen was then insufflated to 15 mmHg pressure. The Veress needle removed and a 5 mm trocar placed followed by a 5 mm 45-degree angle laparoscope visualized the peritoneal cavity. A 4-quadrant abdominal exploration was performed. There was a surgically absent gallbladder. Mild hepatomegaly, no hiatal hernia. Under direct visualization, we then proceeded to place a mid abdominal left of midline 10 mm port after the skin and peritoneal lining were anesthetized using 0.5% Marcaine with epinephrine and a transverse skin incision made using a #15 blade. In a similar manner, a midabdominal right of midline 15 mm port was placed followed by a right upper abdominal quadrant 5 mm port. The epigastric region was then anesthetized and a tract created through the abdominal wall layers using a trocar to a 5 mm port. Through this opening, a large Donte liver retractor was placed and the left lobe of the liver retracted anteriorly and superiorly. The patient was then placed in steep reverse Trendelenburg position. We then measured 6 cm from the pylorus along the greater curvature and marked this area with a marking pen. We then proceeded to dissect the gastrocolic ligament next to the stomach using the Sonicision. We did this until we entered the lesser sac. We then proceeded with inferior dissection until we were approximately 2 cm below our marking with visualization of good hemostasis. We then proceeded with caudal dissection, taking down the short gastric vessels. We also took down the angle of His connective tissue fibers. We then proceeded with a medial dissection until the left latesha of the diaphragm was identified. A 38-Palestinian ViSiGi was then placed and directed into the pylorus. Using this as our staple line guide, we then proceeded with our gastric sleeve resection. We first proceeded with starting 2 cm below our marking. We first proceeded with a 45 mm polyglycolic acid lined black load. We then proceeded with a two 60 mm black loads followed by two 60 mm purple loads leaving 2 cm at the gastroesophageal junction and completing our gastric sleeve resection. The staple line corners were then clipped with 5 mm clips. A leak test to 35 mm of air pressure was performed with no leak identified. Fibrin glue was then placed onto the staple line and the omentum placed on the staple line and the ViSiGi removed. Good hemostasis was observed. The stomach was removed through the 15 mm port site. The fascia and peritoneum to the 15 and 10 mm port sites were then closed under direct visualization using a Rohan-Tracey device and an 0 Vicryl suture. The abdomen was desufflated and the remaining ports removed. All skin incisions were closed using 4-0 Monocryl running subcuticular sutures. A liver retractor was also removed. The patient tolerated the procedure well. We will admit her 23-hour observation. She may have ice chips today and we will proceed with a scheduled antinausea medications. We will also proceed with DVT prophylaxis with early ambulation, calf SCDs as well as Lovenox injections. Tomorrow morning, we will start a phase 1 clear liquid diet and start with 30 mL every half-hour and once she is tolerating 60 mL every half-hour has good pain control with oral pain medication is ambulating well, we will discharge her home where she will be instructed to do no heavy lifting or exertion and continue to follow a phase 1 clear liquid diet for the next 2 weeks. Job ID: [id number] DocumentID: [id number] Dictated Date: 03/11/2023 11:30:12 Donor Services Coordinator Date: 03/11/2023 19:49:00 Dictated By: CAROLINE BEGUM MD MTDD
[2023-03-11] MEDS: ENOXAPARIN 40 MG/0.4 ML SYRINGE SC SCH (19:59)
[2023-03-11] MEDS: oxyCODONE 5 MG/5 ML ORAL SOLN 5 ML UDC PO PRN (23:11)
[2023-03-12] VITALS: BP 122/59
[2023-03-12] MEDS: ceFAZolin INJECTION 2,000 MG in NS (IVPB) 50 ML 50 ML IV SCH ×2 (02:00→09:13)
[2023-03-12] MEDS: fentaNYL INJECTION 100 MCG/2 ML VIAL IVP PRN (02:59)
[2023-03-12 04:00] VITALS: BP 119/60
[2023-03-12] MEDS: METOCLOPRAMIDE INJ 10 MG/2 ML IVP SCH (05:02)
[2023-03-12] MEDS: ONDANSETRON INJECTION 4 MG/2 ML (SDV) IVP SCH (05:02)
[2023-03-12] MEDS: metroNIDAZOLE 500MG/100ML IVPB 100 ML IV SCH (05:22)
[2023-03-12 06:11] LABS: HEMATOCRIT 38 % (35-52); HEMOGLOBIN 12.5 g/dL (11.5-16.0); MEAN CORPUSCULAR HEMOGLOBIN 29 pg (25-34); MEAN CORPUSCULAR HGB CONC 33 g/dL (32-36); MEAN CORPUSCULAR VOLUME 85 fL (80-99); MEAN PLATELET VOLUME 9.7 fL (9.0-12.2); PLATELET COUNT 302 10^3/uL (130-400); WHITE BLOOD COUNT 17.1 10^3/uL (4.3-11.0)
[2023-03-12] MEDS: 1/2 NS + KCL 20 MEQ/L 1,000 ML 1,000 ML IV SCH ×2 (06:24→12:29)
[2023-03-12 06:41] LABS: CALCIUM 8.7 MG/DL (8.5-10.1); CREATININE SERUM 0.77 MG/DL (0.60-1.30); POTASSIUM 3.8 MMOL/L (3.6-5.0)
[2023-03-12] MEDS: RT-ALBUTEROL SULF 2.5 MG/3 ML PRE-MIX VIAL INH SCH (07:23)
[2023-03-12 07:50] VITALS: BP 131/76
[2023-03-12] MEDS ORDERED: PANTOPRAZOLE INJECTION 40 MG VIAL IV SCH (09:00)
[2023-03-12] MEDS ORDERED: SENNA W/DOCUSATE TABLET PO SCH (09:00)
[2023-03-12] MEDS: oxyCODONE 5 MG/5 ML ORAL SOLN 5 ML UDC PO PRN (09:11)
[2023-03-12] MEDS: ENOXAPARIN 40 MG/0.4 ML SYRINGE SC SCH (09:13)
[2023-03-12] MEDS ORDERED: METOCLOPRAMIDE INJ 10 MG/2 ML IVP PRN (09:45)
--- NOTE | 2023-03-12 11:05 | Progress Note ---
Subjective Date Seen by a Provider: Mar 12, 2023 Time Seen by a Provider: 11:00 Subjective/Events-last exam doing ok. still has episodes of nausea however improving over time. pain controlled. starting clears as well as PO pain meds now. Objective Exam Vital Signs Date Time Temp Pulse Resp B/P (MAP) Pulse Ox O2 Delivery O2 Flow Rate FiO2 03/12/23 07:50 37.2 94 16 131/76 (94) 91 Room Air 03/12/23 07:25 95 Room Air 03/12/23 04:00 37.7 91 18 119/60 (79) 94 Room Air 03/12/23 00:00 37.9 93 20 122/59 (80) 92 Room Air 03/11/23 21:00 Room Air 03/11/23 20:40 92 Room Air 03/11/23 19:37 36.9 90 16 116/73 (87) 92 Room Air 03/11/23 17:00 36.8 89 16 110/66 (81) 92 Room Air 03/11/23 15:01 92 Room Air 0.00 03/11/23 12:20 16 142/74 (96) 98 Room Air 03/11/23 12:20 Room Air 03/11/23 12:10 24 139/80 (99) 100 OxyMask 3.00 03/11/23 12:10 OxyMask 3.00 03/11/23 12:00 14 156/68 (97) 100 OxyMask 3.00 03/11/23 11:55 OxyMask 3.00 03/11/23 11:50 16 149/69 (95) 98 OxyMask 3.00 03/11/23 11:40 18 126/70 (88) 100 OxyMask 8 03/11/23 11:40 OxyMask 8 03/11/23 11:30 22 130/64 (86) 99 OxyMask 8 03/11/23 11:25 36.8 20 132/64 (86) 99 8 03/11/23 11:25 OxyMask 8 I & O 03/12/23 07:00 Intake Total 1050 ml Output Total 2050 ml Balance -1000 ml Capillary Refill : General Appearance: No Apparent Distress HEENT: PERRL/EOMI Neck: Full Range of Motion Respiratory: Chest Non Tender, Lungs Clear Cardiovascular: Regular Rate, Rhythm Gastrointestinal: soft, tenderness, other (incisions clean/dry) Neurologic/Psychiatric: Alert, Oriented x3 Skin: Normal Color Lymphatic: No Adenopathy Results Lab Laboratory Tests 03/12/23 05:40: White Blood Count 17.1H, Red Blood Count 4.39, Hemoglobin 12.5, Hematocrit 38, Mean Corpuscular Volume 85, Mean Corpuscular Hemoglobin 29, Mean Corpuscular Hemoglobin Concent 33, Red Cell Distribution Width 14.1, Platelet Count 302, Mean Platelet Volume 9.7, Sodium Level 137, Potassium Level 3.8, Chloride Level 103, Carbon Dioxide Level 24, Anion Gap 10, Blood Urea Nitrogen 5L, Creatinine 0.77, Estimat Glomerular Filtration Rate 100, BUN/Creatinine Ratio 6, Glucose Level 96, Calcium Level 8.7 Microbiology 03/11/23 MRSA Screen - Final, Complete MRSA not isolated Assessment/Plan Assessment/Plan Assess & Plan/Chief Complaint s/p laparoscopic gastric sleeve resection. start phase 1 clear liquid diet. ambulate. patient has all new prescriptions filled at home. CAROLINE BEGUM MD Mar 12, 2023 11:05
[2023-03-12 11:43] VITALS: BP 142/86
[2023-03-12] MEDS ORDERED: ONDANSETRON 4 MG ORAL DISSOLVE TABLET PO PRN (11:45)
[2023-03-12] MEDS ORDERED: OXYCODONE PO NR (12:00)
--- NOTE | 2023-03-12 14:16 | Anesthesia-General Post-Op ---
General Patient Condition Mental Status/LOC: Same as Preop Cardiovascular: Satisfactory Nausea/Vomiting: Absent Respiratory: Satisfactory Pain: Controlled Complications: Absent Post Op Complications Complications None Follow Up Care/Instructions Patient Instructions None needed. Anesthesia/Patient Condition Patient Condition Patient is doing well, no complaints, stable vital signs, no apparent adverse anesthesia problems. No complications reported per nursing. LLUVIA REDDY CRNA Mar 12, 2023 14:16
== END 2023-03-12 13:40 | disposition home or self-care (01) ==
LOC: SDC 07:58 → 4TH 12:40 → SDC 03-12 13:40
PROVIDERS: ATTEND Surgery
DX: E66.01 Morbid (severe) obesity due to excess calories (principal); I10 Essential (primary) hypertension; K21.9 Gastro-esophageal reflux disease without esophagitis; Z68.43 Body mass index [BMI] 50.0-59.9, adult; Z79.899 Other long term (current) drug therapy
CPT/HCPCS: 36415; 80048; 84703; 85027; 87081; 94640; 94664; 94760

== ENCOUNTER 2023-03-28 12:42 | Emergency (ER) | payer OTHER ==
[~2023-03-28] VITALS: Ht 167 cm; Wt 133.0 kg
[2023-03-28] MEDS ORDERED: NS IV 1000 ML 1,000 ML IV STA (12:55)
[2023-03-28] MEDS ORDERED: LACTATED RINGERS 1,000 ML 1,000 ML IV STA ×3 (13:07→15:10)
--- NOTE | 2023-03-28 13:07 | ED General ---
General Chief Complaint: Dizziness/Syncope Stated Complaint: JUST PASSED OUT Source of Information: Patient Exam Limitations: No Limitations History of Present Illness Date Seen by Provider: Mar 28, 2023 Time Seen by Provider: 13:04 Initial Comments Patient is a 42-year-old female who presents ED for a syncopal episode. This occurred 25 minutes ago. Patient is a nurse here at [employer]. She was working with a general surgeon on a endoscopy. She states she started feeling lightheaded before the surgery and this continued. She had a syncopal episode lasting for a few seconds. She states she can remember falling to the ground. She states she sat herself on the ground and laid down. She was found to be hypotensive. Blood pressure was 70/53. She had a gastric sleeve performed by Dr. Brown 2 weeks ago. She started a soft food diet this past Thanks. She states she has not been eating as much or drinking as much fluids. She denies of any abdominal pain, vomiting, diarrhea, chest pain, shortness of breath, headache, dizziness, visual changes, unilateral muscle weakness or sensory changes. No known cardiac history. She states she has been urinating without any difficulties. She states she has lost near 50 pounds over a month. Allergies and Home Medications Allergies Coded Allergies: morphine (Verified Allergy, Unknown, pt has rec'd hydrocodone in the past, 03/11/23) Patient Home Medication List Home Medication List Reviewed: Yes Amlodipine Besylate (Amlodipine Besylate) 5 Mg Tablet, (Reported) Entered as Reported by: BRISEIDA POWELL on 11/08/17 05 Aspirin (Aspirin) 81 Mg Tab.chew, 81 MG PO, (Reported) Entered as Reported by: Adelia Chaudhry on 03/04/23 144 Biotin (Biotin) 10,000 Mcg Capsule, 10,000 MCG PO, (Reported) Entered as Reported by: Adelia Chaudhry on 03/04/23 144 Citalopram Hydrobromide (Citalopram HBr) 20 Mg Tablet, (Reported) Entered as Reported by: BRISEIDA POWELL on 11/08/17 05 Iron (Iron) 18 Mg Tablet, 18 MG PO, (Reported) Entered as Reported by: Adelia Chaudhry on 03/04/23 144 Levothyroxine Sodium (Synthroid) 25 Mcg Tablet, (Reported) Entered as Reported by: BRISEIDA POWELL on 11/08/17509 Magnesium Amino Acid Chelate (Magnesium) 100 Mg Tablet, 100 MG PO, (Reported) Entered as Reported by: Adelia Chaudhry on 03/04/23 144 Multivitamin (Multi-Vitamin Daily) 1 Each Tablet, 1 EACH PO, (Reported) Entered as Reported by: Adelia Chaudhry on 03/04/23 144 Naproxen Sodium (Anaprox Ds) 550 Mg Tablet, 550 MG PO BID, (Reported) Entered as Reported by: Adelia Chaudhry on 03/04/23 1448 Pantoprazole Sodium (Pantoprazole Sodium) 40 Mg Granpkt.dr, 40 MG PO, (Reported) Entered as Reported by: Adelia Chaudhry on 03/04/23 144 Potassium Citrate (Potassium) 99 Mg Capsule, 99 MG PO, (Reported) Entered as Reported by: Adelia Chaudhry on 03/04/231447 Valsartan/Hydrochlorothiazide (Valsartan-Hctz 320-25 mg Tab) 1 Each Tablet, (Reported) Entered as Reported by: BRISEIDA POWELL on 11/08/17509 Review of Systems Review of Systems Constitutional: No diaphoresis, No fever; malaise, weakness EENTM: No ear pain, No blurred vision, No double vision, No eye pain, No tearing, No hoarseness, No mouth pain, No mouth swelling Respiratory: No dyspnea on exertion, No hemoptysis, No short of breath, No stridor, No wheezing Cardiovascular: No chest pain, No edema Gastrointestinal: No abdominal pain, No constipation, No nausea, No vomiting Genitourinary: No decreased output, No dysuria, No frequency Musculoskeletal: No back pain, No joint pain Skin: No change in color Psychiatric/Neurological: Denies Anxiety, Denies Depressed; Other All Other Systems Reviewed Negative Unless Noted: Yes Past Pdwqfya-Cdlkkk-Zlmrte Hx Patient Social History Tobacco Use?: No Use of E-Cig and/or Vaping dev: No Substance use?: No Alcohol Use?: No Pt feels they are or have been: No Immunizations Up To Date Tetanus Booster (TDap): Less than 5yrs First/Initial COVID19 Vaccinat: 07/13/20 Second COVID19 Vaccination Lc: 07/13/20 Third COVID19 Vaccination Date: 07/13/20 Seasonal Allergies Seasonal Allergies: No Past Medical History Surgery/Hospitalization HX: GASTRIC BYPASS 02/24 Surgeries: Yes (hysterosopy D&C) Adenoidectomy, Section, Tonsillectomy Respiratory: No Cardiac: Yes Hypertension Neurological: No Reproductive Disorders: No Sexually Transmitted Disease: No HIV/AIDS: No Genitourinary: No Gastrointestinal: Yes (WELL CONTROLLED WITH MEDICATION) Gastroesophageal Reflux Musculoskeletal: No Endocrine: Yes Hypothyroidsim HEENT: Yes Tonsilitis Cancer: No Psychosocial: Yes Depression Integumentary: No Blood Disorders: No Adverse Reaction/Blood Tranf: No Family Medical History No Pertinent Family Hx Physical Exam Vital Signs Vital Signs - First Documented 03/28/23 12:47 Temp 36.1 Pulse 77 Resp 20 B/P (MAP) 70/38 (49) Pulse Ox 97 O2 Delivery Room Air Capillary Refill : Height, Weight, BMI Height: 5'6.00" Weight: 425lbs. 0.0oz. [id number]; 51.91 BMI Method:Stated General Appearance: No Apparent Distress, WD/WN Eyes: Bilateral Eye Normal Inspection, Bilateral Eye PERRL, Bilateral Eye EOMI HEENT: PERRL/EOMI, TMs Normal, Normal ENT Inspection, Pharynx Normal Neck: Full Range of Motion, Normal Inspection, Non Tender, Supple Respiratory: Chest Non Tender, Lungs Clear, Normal Breath Sounds, No Accessory Muscle Use, No Respiratory Distress Cardiovascular: Regular Rate, Rhythm, No Edema, No Gallop, No JVD Gastrointestinal: Normal Bowel Sounds, No Organomegaly, No Pulsatile Mass, Non Tender Back: Normal Inspection, No CVA Tenderness Extremity: Normal Capillary Refill, Normal Inspection, Normal Range of Motion, Non Tender Neurologic/Psychiatric: Alert, Oriented x3, No Motor/Sensory Deficits, Normal Mood/Affect, coating technician II-XII Norm as Tested Skin: Normal Color, Warm/Dry Progress/Results/Core Measures Suspected Sepsis SIRS Temperature: Pulse: Respiratory Rate: Laboratory Tests 03/28/23 12:53: White Blood Count 16.7H Blood Pressure / Mean: Laboratory Tests 03/28/23 12:53: Creatinine 1.43H, Platelet Count 425H, Total Bilirubin 0.6 Results/Orders Lab Results Laboratory Tests Test 03/28/23 12:53 03/28/23 17:40 Range/Units White Blood Count 16.7 H 4.3-11.0 10^3/uL Red Blood Count 5.32 H 3.80-5.11 10^6/uL Hemoglobin 14.9 11.5-16.0 g/dL Hematocrit 46 35-52 % Mean Corpuscular Volume 86 80-99 fL Mean Corpuscular Hemoglobin 28 25-34 pg Mean Corpuscular Hemoglobin Concent 33 32-36 g/dL Red Cell Distribution Width 14.0 10.0-14.5 % Platelet Count 425 H 130-400 10^3/uL Mean Platelet Volume 10.3 9.0-12.2 fL Immature Granulocyte % (Auto) 1 % Neutrophils (%) (Auto) 65 42-75 % Lymphocytes (%) (Auto) 24 12-44 % Monocytes (%) (Auto) 7 0-12 % Eosinophils (%) (Auto) 3 0-10 % Basophils (%) (Auto) 0 0-10 % Neutrophils # (Auto) 10.9 H 1.8-7.8 10^3/uL Lymphocytes # (Auto) 4.1 H 1.0-4.0 10^3/uL Monocytes # (Auto) 1.1 H 0.0-1.0 10^3/uL Eosinophils # (Auto) 0.5 H 0.0-0.3 10^3/uL Basophils # (Auto) 0.0 0.0-0.1 10^3/uL Immature Granulocyte # (Auto) 0.1 0.0-0.1 10^3/uL Neutrophils % (Manual) 73 % Lymphocytes % (Manual) 18 % Monocytes % (Manual) 5 % Eosinophils % (Manual) 4 % Microcytosis SLIGHT Sodium Level 139 135-145 MMOL/L Potassium Level 3.1 L 3.6-5.0 MMOL/L Chloride Level 101 98-107 MMOL/L Carbon Dioxide Level 24 21-32 MMOL/L Anion Gap 14 5-14 MMOL/L Blood Urea Nitrogen 22 H 7-18 MG/DL Creatinine 1.43 H 0.60-1.30 MG/DL Estimat Glomerular Filtration Rate 48 BUN/Creatinine Ratio 15 Glucose Level 107 H 70-105 MG/DL Calcium Level 9.5 8.5-10.1 MG/DL Corrected Calcium 9.3 8.5-10.1 MG/DL Magnesium Level 2.1 1.6-2.4 MG/DL Total Bilirubin 0.6 0.1-1.0 MG/DL Aspartate Amino Transf (AST/SGOT) 21 5-34 U/L Alanine Aminotransferase (ALT/SGPT) 34 0-55 U/L Alkaline Phosphatase 71 40-136 U/L Troponin I < 0.028 <0.028 NG/ML Total Protein 7.1 6.4-8.2 GM/DL Albumin 4.2 3.2-4.5 GM/DL Urine Color YELLOW Urine Clarity SL CLOUDY Urine pH 6.5 5-9 Urine Specific Dale 1.020 1.016-1.022 Urine Protein 2+ H NEGATIVE Urine Glucose (UA) NEGATIVE NEGATIVE Urine Ketones 2+ H NEGATIVE Urine Nitrite NEGATIVE NEGATIVE Urine Bilirubin 2+ H NEGATIVE Urine Urobilinogen 0.2 < = 1.0 MG/DL Urine Leukocyte Esterase TRACE H NEGATIVE Urine RBC (Auto) 3+ H NEGATIVE Urine RBC NONE /HPF Urine WBC 5-10 H /HPF Urine Squamous Epithelial Cells 5-10 /HPF Urine Crystals PRESENT H /LPF Urine Amorphous Sediment FEW ELGIN URATES H /LPF Urine Bacteria MODERATE H /HPF Urine Casts PRESENT /LPF Urine Hyaline Casts 10-25 H /LPF Urine Mucus MODERATE H /LPF Urine Culture Indicated YES My Orders Orders - TONY LOPEZ Ns Iv 1000 Ml (Ns Iv 1000 Ml) (03/28/23 12:55) Cbc And Automated Diff (03/28/23 13:03) Comprehensive Metabolic Panel (03/28/23 13:03) Magnesium (03/28/23 13:03) Urinalysis (03/28/23 13:03) Troponin I Price (03/28/23 13:03) Lactated Ringers 1,000 Ml (Lactated Ring (03/28/23 13:07) Manual Differential (03/28/23 12:53) Lactated Ringers 1,000 Ml (Lactated Ring (03/28/23 13:32) Lactated Ringers 1,000 Ml (Lactated Ring (03/28/23 15:10) Potassium Chloride (Tablet) (Potassium C (03/28/23 15:45) Orthostatic Vital Signs (Adult (03/28/23 17:09) Urine Culture (03/28/23 17:40) Medications Given in ED Current Medications Medications Dose Ordered Sig/Pedro Route Start Time Stop Time Status Last Admin Dose Admin Potassium Chloride 20 meq ONCE ONCE PO 03/28/23 15:45 03/28/23 15:46 DC 03/28/23 16:30 20 MEQ Vital Signs/I&O 03/28/23 03/28/23 03/28/23 12:47 17:18 17:49 Temp 36.1 Pulse 77 44 55 52 64 Resp 20 20 B/P (MAP) 70/38 (49) 106/59 (75) 109/83 113/76 (88) 102/65 (77) Pulse Ox 97 98 O2 Delivery Room Air Room Air Capillary Refill : ECG Comment Sinus rhythm, moderate voltage criteria for LVH, 76 bpm, QRS duration 85 MS, QTc 403 MS. Departure Communication (PCP) Reviewed previous ER visits, H&P, lab testing. No known cardiac history. Syncopal episode while at work. 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 P atsarkis was in a procedure with a general surgeon and had a witnessed syncopal episode. She states she felt dizzy lightheaded and sat herself to the ground. She remembers sat herself down. Patient had a recent gastric sleeve resection performed by Dr. Brown around 2 weeks ago. Just increased her diet to soft foods. Has not been drinking fluids. She was found to be hypotensive on arrival. IV fluids were started. EKG generalized lab work. CBC showed white blood count of 16. Her white blood count on the 10th showed 17. She has no abdominal pain vomiting or diarrhea. She denies any chest pain or shortness of breath. EKG obtain without evidence of ST elevation or depression. Troponin negative. Chemistry showed a creatinine 1.43, GFR 48, potassium 3.1. Concerning for acute kidney injury. Patient received 3 L of IV fluids here. Obtain orthostatics which she was not orthostatic hypotensive. Blood pressure did improve to 113/76 with multiple readings. She was able to ambulate here without any difficulties. Her initial heart rate was in the 70s. Her heart rate did drop down into the 50s and a few readings as low as 47. She denies history of bradycardia. Heart rate did improve into the 60s at discharge. Urine did look dark as I am concerned that she was likely dehydrated. Did suggest admission for IV fluids observation due to the hypotension and bradycardia. She does not want to stay. She states she is feeling much better at this time. I did discuss continue monitoring her heart rate. Suggest follow-up your PCP in 2 days for reevaluation of your vital signs and lab work. She is currently on amlodipine 5 mg and losartan hydrochlorothiazide 320/25 mg. Suggest not taking her blood pressure medication this evening. Discussed the importance of oral hydration at this time. She did have a near 50 pound weight loss over a month. She has no abdominal tenderness suggesting surgical complications. She is afebrile. Remained asymptomatic during the her stay. If any worsening symptoms such as increased weakness, fatigue, dizziness to return back to ED. Impression Primary Impression: Hypotension Additional Impressions: Dehydration Bradycardia MARCELLO (acute kidney injury) Disposition: HOME, SELF-CARE Condition: Stable Departure-Patient Inst. Decision time for Depature: 17:41 Referrals: CHRIS BOTELLO MD (PCP/Family) Primary Care Physician BRIANA MIJARES MD Patient Instructions: Syncope (Fainting) (DC) Add. Discharge Instructions: Recommend continue with a clear liquids. Recommend recheck of your creatinine and vital signs with your PCP in the next 2 or 3 days. Continue monitoring your heart rate. If continue experiencing any type of symptoms of dizziness lightheadedness or near syncope need to return back to ED. Recommend not taking her blood pressure medication this evening. Discussed blood pressure medication with Dr. Botello All discharge instructions reviewed with patient and/or family. Voiced understanding. TONY LOPEZ Mar 28, 2023 13:07
[2023-03-28 13:12] LABS: BASOPHILS % (AUTO) 0 % (0-10); EOSINOPHILS # (AUTO) 0.5 10^3/uL (0.0-0.3); EOSINOPHILS % (AUTO) 3 % (0-10); HEMATOCRIT 46 % (35-52); HEMOGLOBIN 14.9 g/dL (11.5-16.0); LYMPHOCYTES # (AUTO) 4.1 10^3/uL (1.0-4.0); LYMPHOCYTES % (AUTO) 24 % (12-44); MEAN CORPUSCULAR HEMOGLOBIN 28 pg (25-34); MEAN CORPUSCULAR HGB CONC 33 g/dL (32-36); MEAN CORPUSCULAR VOLUME 86 fL (80-99); MEAN PLATELET VOLUME 10.3 fL (9.0-12.2); MONOCYTES # (AUTO) 1.1 10^3/uL (0.0-1.0); MONOCYTES % (AUTO) 7 % (0-12); NEUTROPHILS # (AUTO) 10.9 10^3/uL (1.8-7.8); NEUTROPHILS % (AUTO) 65 % (42-75); PLATELET COUNT 425 10^3/uL (130-400); WHITE BLOOD COUNT 16.7 10^3/uL (4.3-11.0)
[2023-03-28 13:39] LABS: ALBUMIN 4.2 GM/DL (3.2-4.5); CHLORIDE 101 MMOL/L (98-107); POTASSIUM 3.1 MMOL/L (3.6-5.0); SODIUM 139 MMOL/L (135-145)
[2023-03-28 13:40] LABS: CALCIUM 9.5 MG/DL (8.5-10.1)
[2023-03-28 13:41] LABS: GLUCOSE 107 MG/DL (70-105); TOTAL PROTEIN 7.1 GM/DL (6.4-8.2)
[2023-03-28 13:42] LABS: CARBON DIOXIDE 24 MMOL/L (21-32)
[2023-03-28 13:43] LABS: BILIRUBIN,TOTAL 0.6 MG/DL (0.1-1.0)
[2023-03-28 13:45] LABS: ALKALINE PHOSPHATASE 71 U/L (40-136); CREATININE SERUM 1.43 MG/DL (0.60-1.30); GFR ESTIMATED 48
[2023-03-28 13:46] LABS: BUN/CREATININE RATIO 15
[2023-03-28 13:48] LABS: ALANINE AMINOTRANSFERASE 34 U/L (0-55); MAGNESIUM 2.1 MG/DL (1.6-2.4)
[2023-03-28 13:51] LABS: EOSINOPHILS % (MANUAL) 4 %; LYMPHOCYTES % (MANUAL) 18 %; MICROCYTOSIS SLIGHT; MONOCYTES % (MANUAL) 5 %; NEUTROPHILS % (MANUAL) 73 %
[2023-03-28] MEDS ORDERED: POTASSIUM CHLORIDE 20 MEQ TABLET PO ONE (15:45)
[2023-03-28 17:18] VITALS: BP_SYST 102; BP_SYST 106; BP_SYST 113; BP_DIAS 59; BP_DIAS 65; BP_DIAS 76
[2023-03-28 17:49] VITALS: BP 109/83
[2023-03-28 18:10] LABS: CLARITY,URINE SL CLOUDY; COLOR,URINE YELLOW; GLUCOSE, URINE (UA) NEGATIVE (NEGATIVE); KETONES,URINE 2+ (NEGATIVE); PH,URINE 6.5 (5-9); PROTEIN,URINE 2+ (NEGATIVE)
[2023-03-28 18:11] LABS: AMORPHOUS SEDIMENT,UR FEW AMOR URATES /LPF; BACTERIA,URINE MODERATE /HPF; BILIRUBIN,URINE 2+ (NEGATIVE); LEUKOCYTE ESTERASE ,URINE TRACE (NEGATIVE); NITRITE,URINE NEGATIVE (NEGATIVE)
== END 2023-03-28 17:49 | disposition home or self-care (01) ==
LOC: EDUNIT# 12:42 → ER 12:43
DX: I95.9 Hypotension, unspecified (principal); E86.0 Dehydration; R00.1 Bradycardia, unspecified; N17.9 Acute kidney failure, unspecified; I10 Essential (primary) hypertension
CPT/HCPCS: 36415; 80053; 81000; 83735; 84484; 85007; 85027; 87088; 93005

== ENCOUNTER → 2023-03-29 | Outpatient (CLI) | payer OTHER ==
[~2023-03-29] MED LIST changes: +NS IV 1000 ML 2,000 ML IV SCH; +NS IV 1000 ML 2,000 ML ONE
[2023-03-29 10:00] VITALS: BP 102/65
== END ==
LOC: SDC 10:03
PROVIDERS: ATTEND Family Medicine
DX: E86.0 Dehydration (principal)
CPT/HCPCS: 96360; 96361